=== PATIENT | female | born 1995 | race Caucasian/White ===

== ENCOUNTER → 2016-08-17 | Outpatient (CLI) | payer OTHER ==
[~2016-08-17] MED LIST: DOXY100T16 PO; LISI-542 OR; ROXI1TAB2 OR; TYLE325T5 OR
== END ==
LOC: M LAB 15:36
PROVIDERS: ATTEND Nurse Practitioner Family
DX: Z32.01 Encounter for pregnancy test, result positive (principal)

== ENCOUNTER → 2016-08-24 | Outpatient (CLI) | payer OTHER ==
--- NOTE | 2016-08-25 04:02 | REP ---
Clinical: Dating and viability. Technique: Transabdominal first trimester ultrasound using curved array transducer with color Doppler evaluation of the fetus. Findings: Single live early intrauterine identified. Gestational sac with yolk sac and pole noted. CRL of 1.9 cm corresponds to 8 weeks 3 days gestational age with estimated date of delivery 04/02/2017. heart rate equals 187 beats per minute. A small subchorionic hemorrhage is identified measuring 3.2 x 0.8 x 2.8 cm. Impression: 1. Single live early intrauterine at 8 weeks 3 days gestational age. Complete anatomical assessment should be performed at 19-20 weeks. 2. Small subchorionic hemorrhage. Signed by Darinel Doran MD 08/25/2016 03:54 A
== END ==
LOC: M RAD 16:04
PROVIDERS: ATTEND Nurse Practitioner Family
DX: Z32.01 Encounter for pregnancy test, result positive (principal)

== ENCOUNTER → 2017-05-04 | Outpatient (REF) | payer OTHER ==
[2017-05-04 17:38] LABS: MEAN CORPUSCULAR HEMOGLOBIN 27.8 pg (27.0-33.0); MEAN CORPUSCULAR HGB CONC 31.4 g/dl (32.0-36.5); MEAN CORPUSCULAR VOLUME 88.4 fl (80.0-96.0); RED CELL DISTRIBUTION WIDTH 13.4 % (11.5-14.5); WHITE BLOOD COUNT 7.7 10^3/uL (4.0-10.0)
[2017-05-04 19:34] LABS: ALBUMIN 3.6 GM/DL (3.2-5.2); ALBUMIN/GLOBULIN RATIO 0.97 (1.00-1.93); ALKALINE PHOSPHATASE 100 U/L (45-117); ALT/SGPT 17 U/L (12-78); ANION GAP 8 MEQ/L (8-16); AST/SGOT 12 U/L (15-37); BILIRUBIN,TOTAL 0.2 MG/DL (0.2-1.0); BLOOD UREA NITROGEN 13 MG/DL (7-18); CARBON DIOXIDE LEVEL 27 MEQ/L (21-32); CHLORIDE LEVEL 106 MEQ/L (98-107); CREATININE FOR GFR 0.63 MG/DL (0.55-1.02); GLOMERULAR FILTRATION RATE > 60.0 (>60); GLUCOSE, FASTING 90 MG/DL (70-105); POTASSIUM SERUM 4.1 MEQ/L (3.5-5.1); SODIUM LEVEL 141 MEQ/L (136-145); TOTAL PROTEIN 7.3 GM/DL (6.4-8.2)
== END ==
LOC: M SFHCLERA 12:27
PROVIDERS: ATTEND Physician Assistant
DX: F41.8 Other specified anxiety disorders (principal); Z00.00 Encounter for general adult medical examination without abnormal findings

== ENCOUNTER → 2017-05-04 | Outpatient (CLI) | payer OTHER ==
--- NOTE | 2017-05-04 13:28 | REP ---
Lumbar spine five views: Comparison is 08/30/2058. Vertebral body heights, interspacing alignment are normal and unchanged. There is no spondylolysis or spondylolisthesis. The pedicles, facets and sacroiliac articulations are unremarkable. 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 There is no interval change. Signed by Ceferino Vargas MD 05/04/2017 01:20 P
== END ==
LOC: M LRY 12:32
PROVIDERS: ATTEND Physician Assistant
DX: M54.5 Low back pain (principal)